=== PATIENT | male | born 1955 | race Caucasian/White ===

== ENCOUNTER 2017-03-23 23:44 | Inpatient (IN) ==
[2017-03-23] MEDS ORDERED: ASPIRIN PO STA (23:48)
[2017-03-24 00:53] LABS: MANUAL DIFF NEEDED? NO
[2017-03-24 00:57] LABS: BASO% 0.7 % (0.0-0.8); EOS# 0.06 X1000 (0.0-0.7); EOS% 2.2 % (0.0-10.0); HEMATOCRIT 32.5 % (42.0-52.0); HEMOGLOBIN 11.7 g/dL (14.0-18.0); LYMPH# 0.75 X1000 (1.2-3.4); LYMPH% 27.5 % (20.5-51.1); MCH 34.5 PG (27-31); MCV 95.9 FL (81-99); MONO# 0.37 X1000 (0.11-0.59); MONO% 13.6 % (1.7-9.3); MPV 10.3 FL (7.4-10.4); PLT 154 X1000 (130-400); RBC 3.39 XMIL (4.7-6.1)
[2017-03-24 01:11] LABS: INR 0.94; PROTIME 9.8 Seconds (9.2-11.7); PTT 25.9 Seconds (22.0-36.0)
[2017-03-24 01:23] LABS: AGAP 16; ALKALINE PHOSPHATASE 75 U/L (32-122); BUN 7 mg/dL (8-22); CALCIUM 8.8 mg/dL (8.8-10.2); CHLORIDE 101 mmol/L (98-107); CK PROFILE 58 U/L (24-204); COSMO 274; GOT 60 U/L (10-34); GPT 44 U/L (10-44); MAGNESIUM 1.9 mg/dL (1.5-2.7); POTASSIUM 4.1 mmol/L (3.5-5.1); SODIUM 138 mmol/L (136-145); TCO2 21 mmol/L (25-35); TOTAL PROTEIN 6.3 g/dL (6.3-8.3)
--- NOTE | 2017-03-24 01:25 | ED EKG INTERP ---
This chart was entered by Craig Levi Scribe, acting as scribe for Michael Valadez MD. EKG Interpretation - EKG Time of EKG reading by physician:: 00:27 EKG Read and Signed by:: Michael Valadez EKG Interpretation (*Must complete 3 of following elements*): Normal Rate: 85 Rhythm: NSR This chart was documented by the indicated scribe, (Craig Levi Scribe) and accurately reflects the services I performed and decisions made by Rory xiong Warren D., MD, as attested by the provider's signature.
[2017-03-24 01:56] LABS: AMYLASE 176 U/L (20-200); LIPASE 213 U/L (13-60)
--- NOTE | 2017-03-24 02:30 | PROVIDER DOCUMENTATION ---
This chart was entered by Craig Levi Scribe, acting as scribe for Michael Valadez MD. HPI-Abdominal Pain/GI Problem - General Chief Complaint: Chest Pain Stated Complaint: cp Time Seen by Provider: 03/24/17 01:24 Source: patient Allergies/Adverse Reactions: Patient Allergies Allergy/AdvReac Type Severity Reaction Status Date / Time No Known Allergies Allergy Verified 03/14/17 15:52 Home Medications: Home Medication List Medication Instructions Recorded Confirmed Last Taken Type NK [No Home Medications] 03/09/17 03/14/17 Unknown History - History of Present Illness-ABD Nature of Presenting Problems: Pt darwin 61 yowm who presents to ER via EMS with CC of subternal/epigastric pain that started at approximately 2200 last night. Pt reports that he was walking down the street when he suddenly passed out. Pt reports recent hx of pancreatitis and states that he consumes 2-4 x16 ounce beers per day. Pt also omplains of N/V/bilateral upper extremity numbness. No further complaints at this time. Abdominal Pain Onset Location: reports: epigastric Pain Radiation: reports: no radiation Severity in ED: reports: mild, moderate Onset/Duration: reports: 4-6 hours ago Timing: reports: still present, improving Associated Symptoms: reports: arm pain, muscle aches, nausea, syncope, vomiting , weakness, trouble walking. denies: back/neck pain, chest pain, constipation, cough, diaphoresis, diarrhea, dizziness, fatigue, fever/chills, loss of appetite , shortness of breath Last BM: unsure Dark Stools Present?: reports: none noticed Rectal Bleeding: reports: none Rectal Pain: reports: none Emesis Description: reports: clear Review of Systems - Adult - REVIEW OF SYSTEMS - ADULT Constitutional: denies: chills, fever, fatique, night sweats, weight gain, weight loss Eyes: reports: no symptoms reported Ears, Nose, Mouth & Throat: reports: no symptoms reported Cardiovascular: reports: no symptoms reported Respiratory: reports: no symptoms reported Gastrointestinal: reports: abdominal pain, nausea, vomiting. denies: hematemesis, constipation, diarrhea, difficulty swallowing, frequent heartburn, poor appetite, rectal bleeding Genitourinary: reports: no symptoms reported Musculoskeletal: reports: frequent leg cramps, other (difficulty walking). denies: bone pain, back pain, joint pain, joint swelling, muscle aches, muscle weakness, neck pain Integumentary: reports: no symptoms reported Neurological: reports: numbness (bilateral upper extremities). denies: ataxia, dizziness/vertigo, headache/migraines, loss of balance, paresthesia, seizure, slurred speech, syncope, tremors Psychiatric: reports: no symptoms reported Endocrine: reports: no symptoms reported Hematologic/Lymphatic: reports: no symptoms reported Allergic/Immunologic: reports: no symptoms reported All Other Systems: Reviewed and Negative Past History - Adult - PAST MEDICAL HISTORY-ADULT Review of Records: reports: Nursing Assessment Review, Medications Reviewed Psychiatric: reports: bipolar - PRIOR SURGERIES/PROCEDURES Surgical/Procedure History: reports: reviewed, not pertinent - IMMUNIZATION STATUS Childhood Immunizations: See Nurse Assessment Flu Vaccine: See Nurse Assessment - FAMILY HISTORY Family History: reviewed, not pertinent Physical Exam-General - PHYSICAL EXAM-ADULT Initial Vital Signs Reviewed: Yes - CONSTITUTIONAL General Appearance: appears well, alert, mild distress, lethargic - EYES Eyes: PERRL/EOMI, pink conjunctivae - RESPIRATORY Respiratory: chest non-tender, lungs clear, normal breath sounds, no pleuratic chest pain, no respiratory distress, no accessory muscle use. negative: respiratory distress, decreased breath sounds, accessory muscle use, wheezing - CARDIOVASCULAR Cardiovascular: normal peripheral pulses, regular rate, rhythm. negative: bradycardia, tachycardia, irregularly irregular - GASTROINTESTINAL (ABDOMEN) Abdominal Exam: normal bowel sounds, non tender, soft, no organomegaly, no pulsatile mass. negative: abnormal bowel sounds, distended, guarding, rebound, tenderness - MUSCULOSKELETAL Back Exam: no CVA tenderness, no vertebral tenderness. negative: CVA tenderness , vertebral tenderness Extremity: normal range of motion, non-tender, normal gait, normal inspection, no pedal edema, no calf tenderness, normal capillary refill, pelvis stable. negative: deformity, erythema, inflammation, swelling, tenderness - PSYCHIATRIC Psych/Mental Status: normal mood/affect, normal thought content, normal thought process, oriented x 3 Progress - PLAN OF CARE/RESULTS Progress/Plan/Lab Results: Vital Signs - 8 hr 03/23/17 23:50 Temperature 98.8 F Pulse Rate 109 H Respiratory Rate 18 Blood Pressure 111/71 O2 Sat by Pulse Oximetry 100 Laboratory Results - last 24 hr 03/23/17 03/23/17 03/23/17 23:55 23:55 23:55 WBC 2.73 L RBC 3.39 L Hgb 11.7 L Hct 32.5 L MCV 95.9 MCH 34.5 H MCHC 36.0 RDW Std Deviation 14.4 Plt Count 154 MPV 10.3 Immature Gran % (Auto) 0.0 Neut % (Auto) 56.0 Lymph % (Auto) 27.5 [place] % (Auto) 13.6 H Eos % (Auto) 2.2 Baso % (Auto) 0.7 Immature Gran # (Auto) 0.00 Neut # (Auto) 1.53 Lymph # (Auto) 0.75 L [place] # (Auto) 0.37 Eos # (Auto) 0.06 Baso # (Auto) 0.02 PT INR PTT (Actin FS) D-Dimer 1.21 H Sodium 138 Potassium 4.1 Chloride 101 Carbon Dioxide 21 L Anion Gap 16 BUN 7 L Creatinine 0.8 Estimated GFR/1.73 m2 > 60 BUN/Creatinine Ratio 9 Glucose 98 Calculated Osmolality 274 Calcium 8.8 Magnesium 1.9 Total Bilirubin 0.20 AST 60 H ALT 44 Alkaline Phosphatase 75 Creatine Kinase 58 Troponin T Xwg-[id number]-Drhanccxzzm Pept Total Protein 6.3 Albumin 4.0 Globulin 2.3 Albumin/Globulin Ratio 1.7 03/23/17 03/23/17 03/23/17 23:55 23:55 23:55 WBC RBC Hgb Hct MCV MCH MCHC RDW Std Deviation Plt Count MPV Immature Gran % (Auto) Neut % (Auto) Lymph % (Auto) [place] % (Auto) Eos % (Auto) Baso % (Auto) Immature Gran # (Auto) Neut # (Auto) Lymph # (Auto) [place] # (Auto) Eos # (Auto) Baso # (Auto) PT 9.8 INR 0.94 PTT (Actin FS) 25.9 D-Dimer Sodium Potassium Chloride Carbon Dioxide Anion Gap BUN Creatinine Estimated GFR/1.73 m2 BUN/Creatinine Ratio Glucose Calculated Osmolality Calcium Magnesium Total Bilirubin AST ALT Alkaline Phosphatase Creatine Kinase Troponin T < 0.010 Nbu-P-Pzwygkgcukp Pept 46 Total Protein Albumin Globulin Albumin/Globulin Ratio Orders Category Date Time Status Cardiac Monitoring DIRECTED Care 03/23/17 23:48 Active Saline Loc NOW Care 03/23/17 23:48 Active CHEST-2 VIEWS [RAD] Stat Exams 03/23/17 23:48 Taken AMYLASE [CHEM] Stat Lab 03/24/17 01:29 Uncollected CBC WITH ELECTRONIC DIFF [HEME] Stat Lab 03/24/17 00:48 Completed CK PROFILE [SP CHEM] Stat Lab 03/24/17 00:48 Completed COMPREHENSIVE METABOLIC PANEL [CHEM] Stat Lab 03/24/17 00:48 Completed D-DIMER [CHEM] Stat Lab 03/24/17 00:48 Completed LIPASE [CHEM] Stat Lab 03/24/17 01:29 Uncollected MAGNESIUM [CHEM] Stat Lab 03/24/17 00:48 Completed PRO B-NATRIURETIC PEPTIDE Stat Lab 03/24/17 00:48 Completed PROTIME WITH INR [COAG] Stat Lab 03/24/17 00:48 Completed PTT [COAG] Stat Lab 03/24/17 00:48 Completed TROPONIN T Stat Lab 03/24/17 00:48 Completed Aspirin Med 03/23/17 23:48 Discontinued 325 mg PO STAT STA EKG [EKG] Stat Ther 03/23/17 23:48 Ordered Result Diagrams: 03/23/17 23:55 03/23/17 23:55 - REASSESSMENT Reassessment #1 Time Reassessed: 02:34 Status: unchanged (pt agrees to admission, he says that ativan is very helpful for him and that his pain is 7-8/10) - XRAY 1 XRAY: Bilateral XRAY Study: Chest Impression: See EMR Report XRAY Interpretation: No acute abnormalities - Dr. Valadez Departure - Departure Date of Disposition Decision: 03/24/17 Time of Disposition Decision: 02:34 DIAGNOSIS: Pancreatitis, alcoholic, acute Qualifiers: Acute pancreatitis complication: unspecified Qualified Code(s): K85.20 - Alcohol induced acute pancreatitis without necrosis or infection Disposition: ADMITTED INPATIENT 09 Certified Medical Emergency: Emergent Condition: Stable Referrals and Follow-Ups: None,PCP [Primary Care Provider] - - Critical Care Note This patient required my direct & personal management of CC.: No This chart was documented by the indicated scribe, (Craig Levi Scribe) and accurately reflects the services I performed and decisions made by me, Michael Valadez MD, as attested by the provider's signature.
[2017-03-24] MEDS ORDERED: NS 1,000 ML IV ONE ×2 (02:32→04:40)
[2017-03-24] MEDS ORDERED: ATIVAN IV ONE (02:32)
[2017-03-24] MEDS ORDERED: DILAUDID IV ONE (02:33)
[2017-03-24] MEDS ORDERED: PEPCID IV SCH (04:40)
[2017-03-24] MEDS ORDERED: ZOFRAN IV PRN (04:40)
[2017-03-24] MEDS ORDERED: SODIUM CHLORIDE 0.9% INJ SCH (04:40)
[2017-03-24] MEDS ORDERED: MORPHINE IV PRN (04:40)
[2017-03-24] MEDS: ATIVAN IV PRN (05:07)
--- NOTE | 2017-03-24 05:40 | EKG Report ---
Test Performed on : 03/23/2017 11:53:49 PM Test Reason : Chest Pain Blood Pressure : / mmHG Vent. Rate : 085 BPM Atrial Rate : 085 BPM P-R Int : 136 ms QRS Dur : 088 ms QT Int : 360 ms P-R-T Axes : 080 087 083 degrees QTc Int : 428 ms Normal sinus rhythm. Normal ECG When compared with ECG of 14-MAR-2017 15:33, T wave inversion now evident in Anterior leads Unconfirmed Result
[2017-03-24] MEDS ORDERED: PNEUMOVAX 23 IM ONE (05:42)
--- NOTE | 2017-03-24 06:41 | Diag Imaging Result Doc PS360 ---
CHEST-2 VIEWS - 03/23/2017 INDICATION: CP TECHNIQUE: COMPARISON: 03/14/2017 FINDINGS: Stable hyperexpanded lungs compatible with COPD. Stable granuloma in the right lung apex. No focal infiltrates, pneumothorax, or pleural effusion. Heart size is normal. IMPRESSION: No acute disease or change from prior. Electronically signed by Apollo Hernandez 03/24/2017 6:38 AM
[2017-03-24] MEDS ORDERED: ZANTAC IV SCH (07:15)
--- NOTE | 2017-03-24 08:13 | HISTORY AND PHYSICAL ---
CHIEF COMPLAINT: Abdominal pain. HISTORY OF PRESENT ILLNESS: This is a 61-year-old gentleman, no medical problems, but chronic alcohol use, who comes in for evaluation. Patient apparently was admitted at [facility] about 5 weeks ago for similar process. He may have left AMA. In any case, he did not stay abstinent. He says he has been cutting back on the amounts of beers he drank, but he did have a couple beers yesterday in preparation for 25 of March. Had worsening abdominal pain. He also had an episode of not syncope, but extreme weakness and he ended up falling and came in for further evaluation. Pain is described as sharp, epigastric to mid abdomen, radiating to his back, pain he would not wish on his worst enemy. He does report weight loss, as well, about 30 pounds in the last 2 months. He does drink 4-6 beers a day by his own admonition. Was a heavier drinker in the past. He does admit to an episode of hematemesis the last admission, which was associated with just persistent retching, but he has not had any bleeding this admission. In any case, the patient was found to have acute pancreatitis, although very minimal elevation in his lipase only 213. He has an alcohol level of 297 and was admitted for treatment. PAST MEDICAL HISTORY: Denies. PAST SURGICAL HISTORY: He has had a double hernia repair. FAMILY HISTORY: Reviewed and noncontributory. SOCIAL HISTORY: Smokes at least half a pack a day, 4-6 beers a day. Denies drug use, although the last time he was here he did have cocaine in his system. That was just about a couple weeks ago and alcohol in his system too. His alcohol level has been as high as 402, so he is always a fairly heavy user. ALLERGIES: No known drug allergies. MEDICATIONS: Denies. REVIEW OF SYSTEMS: Otherwise negative, except as mentioned in the HPI. All other systems reviewed and are negative. PHYSICAL EXAMINATION: VITAL SIGNS: Blood pressure 108/74, heart rate of 86, respiratory rate 20, temperature 98.4 degrees, 99% on room air. GENERAL: A well-developed male, in no acute distress. HEAD: Normocephalic, atraumatic. EYE EXAMINATION: Pupils equal, round, reactive to light. Extraocular movements were intact. EAR/NOSE/THROAT EXAMINATION: He had moist mucous membranes. NECK EXAMINATION: Supple. CARDIOVASCULAR EXAMINATION: Regular rate and rhythm. No murmurs, gallops, or rubs. PULMONARY EXAMINATION: Bilateral breath sounds. Clear to auscultation. GI: Soft, nontender, nondistended. Bowel sounds are positive. LABORATORY DATA: Normal CMP. Lipase at 213 with a normal amylase. White count 2.7. Hemoglobin and hematocrit 11 and 32. Platelets 154,000. AST is up to 60. Alcohol level 297. There was a chest x-ray done yesterday which was clear and the EKG showed some inverted leads. Some possible T-wave inversion in V1 and V2. PROBLEM LIST: 1. Acute pancreatitis, likely alcohol related. I am going to go ahead and pursue imaging with CT scan. May consider right upper quadrant as well, if gallbladder is unrevealing, mostly because of his profound weight loss. We will continue NPO status, pain control, nausea control, and follow. Have counseled on avoiding alcohol and being completely abstinent until the evaluation is improved. 2. Chest pain is atypical and I think likely related to pancreatitis. We will repeat his cardiac enzymes. He does have an elevated D-dimer, although does not report shortness of breath. Difficult to assess what else we are going to do about that at this point. Initially, I am going to obviously do a CT of the abdomen and continue to evaluate at this point. Repeat his cardiac enzymes. Monitor on telemetry. Further cardiac testing pending his GI workup. 3. Hepatitis. He reports non-A and non-B hepatitis. We will repeat his levels and follow. He may have some issues associated with that with the weight loss. Obviously, there is concern over hepatocellular carcinoma, but we will see what the CT scan shows and go from there. Disposition pending his work-up. 4. Alcohol withdrawal. He is already shaking somewhat, already tremulous, but his alcohol level was still high, so I think he may go through fairly significant withdrawal. We will continue Ativan. I am going to schedule it 3 times a day with p.r.n. dosing and banana bag and follow closely. 5. Leukopenia, likely related to chronic alcohol use. We will check if colic acid and B12 levels and follow. cc: Robert Solomon MD
[2017-03-24] MEDS ORDERED: POTASSIUM CHLORIDE 20 MEQ, MAGNESIUM SULFATE 2 GM, THIAMINE 100 MG, FOLIC ACID 1 MG, M.... IV SCH ×6 (08:30)
--- NOTE | 2017-03-24 09:36 | Diag Imaging Result Doc PS360 ---
EXAM: ABDOMEN/PELVIS W/CONTRAST HISTORY: weight loss, pancreatitis TECHNIQUE: Dose reduction protocol COMPARISON: None. FINDINGS: There is fatty infiltration of the liver. Normal spleen and adrenal glands. Mild prominence to the common bile duct and pancreatic duct. No focal pancreatic abnormality. No pancreatic calcifications, mass, or pseudocyst. No calcified gallstones or adjacent inflammation. Normal enhancement of the kidneys. No hydronephrosis. No aortic aneurysm. No bowel obstruction. Normal appendix. No abscess. The urinary bladder is quite distended and appears normal. IMPRESSION: 1.Fatty infiltration of the liver 2.Mildly dilated common bile duct and pancreatic duct, but no other evidence of pancreatitis. Electronically signed by Dale Langston 03/24/2017 9:34 AM
[2017-03-24] MEDS: ATIVAN IV SCH ×3 (09:50→22:53)
[2017-03-24] MEDS: ZANTAC 50 MG in NS 50 ML IV SCH ×2 (10:13→16:13)
[2017-03-24] MEDS: POTASSIUM CHLORIDE 20 MEQ, MAGNESIUM SULFATE 2 GM, THIAMINE 100 MG, FOLIC ACID 1 MG, M.... IV SCH ×6 (10:13)
[2017-03-24] MEDS: MORPHINE IV PRN ×2 (10:25→14:48)
[2017-03-24 12:31] LABS: UR AMPHETAMINES QUAL NONE DETECTED (NONE DETECT); UR BARBITUATES QUAL NONE DETECTED (NONE DETECT); UR BENZODIAZEPIN QUAL NONE DETECTED (NONE DETECT); UR CANNABINOIDS QUAL NONE DETECTED (NONE DETECT); UR COCAINE QUAL NONE DETECTED (NONE DETECT); UR METHADONE QUAL NONE DETECTED (NONE DETECT); UR OPIATES QUAL PRESUMPTIVE POSITIVE (NONE DETECT); UR OXYCODONE QUAL NONE DETECTED (NONE DETECT); UR PCP QUAL NONE DETECTED (NONE DETECT)
--- NOTE | 2017-03-24 16:31 | Diag Imaging Result Doc PS360 ---
EXAM: US GB < RUQ (LIMITED) HISTORY: dilated cbd. R/o stones TECHNIQUE: COMPARISON: None. FINDINGS: No aneurysmal dilatation to the abdominal aorta. Normal inferior vena cava. No focal hepatic abnormality. Normal right kidney. No hydronephrosis. No ascites in the right upper quadrant. Normal gallbladder. No stones. Common bile duct measures 7 mm. No focal pancreatic abnormality. IMPRESSION: No definite abnormality. Electronically signed by Dale Langston 03/24/2017 4:28 PM
--- NOTE | 2017-03-24 16:53 | PROGRESS NOTE ---
DATE: 03/24/2017 SUBJECTIVE: Mr. Baker was admitted early on today after he started having some epigastric pain, nausea and vomiting and passed out. Also complained of extreme weakness. Patient presented and was found to have elevated lipase level and also positive plasma ethylene alcohol level of 297, which is ridiculously high. OBJECTIVE: Vitals: Today his vitals, blood pressure is 126/72, pulse of 80, respirations 18, temperature 98.8 degrees. General: Mr. Baker is a 61-year-old male. He looks very emaciated, in bed. HEENT: Mucosa is pink, slightly dry. Anicteric. Acyanotic. Neck: Neck is supple. Chest: Good air entry bilateral. No crepitations. No rhonchi. Cardiovascular: Regular rate and rhythm. Abdomen: Soft. Mildly tender in the epigastrium. Bowel sounds are present. Extremities: No pedal edema. LABORATORY DATA: None for today. Of note, patient folate level is 7.1 which is low. Presenting lipase is 213. ASSESSMENT: 1. Mild acute pancreatitis. A computed tomography scan of the abdomen did not show any evidence of pancreatic inflammation; however, common bile duct is slightly dilated. We are going to do a limited right upper quadrant ultrasound to make sure there is not any gallstone contributing to the etiology of the pancreatitis. May need GI consult if US is abnormal. 2. Alcohol intoxication. 3. Protein calorie malnutrition. 4. Folate deficiency. 5. Generalized weakness and deconditioning. PLAN: We are going to continue the IV fluids, adequate pain control. Patient refers that he thinks he can drink something. We will therefore put him on some clear liquids to see if he will be able to tolerate it and gradually advanced his diet as tolerated. We will be pending the ultrasound report to make further decisions. cc: Harjinder Rondon MD [facility]
[2017-03-25] MEDS: MORPHINE IV PRN ×3 (00:07→09:09)
[2017-03-25] MEDS: ZANTAC 50 MG in NS 50 ML IV SCH ×2 (00:08→08:47)
[2017-03-25] MEDS: ATIVAN IV PRN ×2 (03:26→15:35)
[2017-03-25 06:09] LABS: HEMATOCRIT 34.1 % (42.0-52.0); HEMOGLOBIN 11.8 g/dL (14.0-18.0); MCH 34.5 PG (27-31); MCHC 34.6 g/dL (33-37); MCV 99.7 FL (81-99); MPV 10.2 FL (7.4-10.4); RBC 3.42 XMIL (4.7-6.1)
[2017-03-25 06:33] LABS: AGAP 14; ALBUMIN 3.8 g/dL (3.5-5.0); ALKALINE PHOSPHATASE 56 U/L (32-122); AMYLASE 128 U/L (20-200); BUN 9 mg/dL (8-22); CHLORIDE 100 mmol/L (98-107); COSMO 272; GOT 36 U/L (10-34); GPT 33 U/L (10-44); LIPASE 79 U/L (13-60); POTASSIUM 3.8 mmol/L (3.5-5.1); SODIUM 137 mmol/L (136-145); TCO2 23 mmol/L (25-35); TOTAL BILIRUBIN 0.43 mg/dL (0.20-1.00); TOTAL PROTEIN 6.3 g/dL (6.3-8.3)
[2017-03-25] MEDS: POTASSIUM CHLORIDE 20 MEQ, MAGNESIUM SULFATE 2 GM, THIAMINE 100 MG, FOLIC ACID 1 MG, M.... IV SCH ×6 (08:47)
[2017-03-25] MEDS: ATIVAN IV SCH ×2 (09:00→15:46)
[2017-03-25 11:07] LABS: HEPATITIS PROFILE ACUTE SEE COMMENTS
[2017-03-25] MEDS ORDERED: NICODERM PATCH TD PRN (15:12)
[2017-03-25] MEDS ORDERED: LIBRIUM PO SCH (15:15)
[2017-03-25] MEDS ORDERED: NS 1,000 ML IV SCH (15:17)
--- NOTE | 2017-03-25 15:37 | PROGRESS NOTE ---
DATE: 03/25/2017 SUBJECTIVE: Patient has no focal complaints. OBJECTIVE: Vital Signs: Stable. Blood pressure is 126/73, heart rate 68, respiratory rate 16, temperature 98.2 degrees. Cardiovascular: Regular rate and rhythm. Pulmonary: Bilateral breath sounds. Clear to auscultation. GI: Soft, nontender, nondistended. Bowel sounds are positive. Extremities: No clubbing or cyanosis. Lymphatics: No peripheral edema. Neurological: Nonfocal. LABORATORY DATA: Lipase has come down to 79. AST is a up a little bit. PROBLEM LIST: 1. Acute pancreatitis, clinically improving. I am going to advance his diet, continue fluids and follow. No other issues from that standpoint. 2. Alcohol intoxication withdrawal. We are going to continue his medication and follow. 3. Folate deficiency. We will continue supplement and follow. 4. Generalized weakness. He now he may have some degree of neuropathy or myopathy associated with fairly substantial alcohol use. His levels have been previously 400. This admission was 297, which is very high. And although he is improved now, the longstanding effects of high levels are concerning. We will check some inflammatory markers and follow closely. cc: Robert Solomon MD
[2017-03-25 16:21] VITALS: BP 136/75
[2017-03-26] MEDS ORDERED: FOLIC ACID PO SCH (09:00)
[2017-03-26] MEDS ORDERED: THERA M PLUS PO SCH (09:00)
[2017-03-27 10:21] LABS: HCV BY PCR SEE COMMENTS; HCV CHARGE YES
--- NOTE | 2017-05-18 04:11 | DISCHARGE SUMMARY ---
ADMISSION DATE: 03/24/2017 DISCHARGE DATE: 03/25/2017 DISCHARGE DIAGNOSES: 1. Acute pancreatitis. 2. History of alcohol abuse. HOSPITAL COURSE: The patient came in for acute pancreatitis. He was admitted on the and discharged on the . He reports that he had been at [facility] and it looks like he probably left AMA back then. He came in with severe abdominal pain. We pursued imaging which included an abdominal and pelvis CT which showed fatty liver and a mildly dilated common bile duct but no maria a pancreatitis. His abdominal ultrasound on the showed no gallbladder disease. His initial lipase, amylase was only elevated at 213 and then at the time of discharge was 79 which had improved. His folate level was improved. On the , he had improved somewhat. His diet was advanced. On the , his diet was further advanced. We went over the plans. There was some concern over alcohol withdrawal but overall he seemed to be improved. He had high alcohol levels in the past, up to 400, and this admission was around 297. Plans were to monitor for another 24 hours but patient left AMA around 1700. cc: Robert Solomon MD
== END 2017-03-25 17:21 | disposition left against medical advice (07) ==
LOC: ED 23:44 → 4N 03-24 02:58 → SUATTDRO 03-24 02:58
PROVIDERS: ATTEND Internal Medicine